=== PATIENT | female | born 1995 | race African-American/Black ===

== ENCOUNTER 2017-10-03 17:23 | Inpatient (IN) ==
[2017-10-03] MEDS ORDERED: ONDANSETRON 4 MG/2 ML VIAL IV PRN (17:43)
[2017-10-03 18:33] LABS: Basophils % 0.5 % (0.0-0.8); Eosinophils # 0.1 10*3/uL (0.0-0.87); Eosinophils % 1.2 % (0.00-10.9); Hematocrit 30.2 VOL% (35.7-47.0); Hemoglobin 10.2 GM/DL (12.0-16.0); Immature Granulocytes % 0.7 %; Immature Granulocytes Absolute 0.04 #; Lymphocytes # 2.1 10*3/uL (1.4-4.0); Lymphocytes % 34.3 % (21.3-54.2); Mean Corpuscular HGB Conc 33.8 GM/DL (32-36); Mean Corpuscular Hemoglobin 28 PG (27-34); Mean Corpuscular Volume 82.7 FL (87-102); Mean Platelet Volume 10.3 FL (9.6-12.0); Monocytes # 0.6 10*3/uL (0.11-0.8); Monocytes % 10.4 % (1.7-12.7); Neutrophils # 3.2 10*3/uL (1.4-7.4); Neutrophils % 52.9 % (38.7-73.9); Platelet Count 266 T/CUMM (130-400); Red Blood Count 3.65 MC/CUMM (3.8-5.5); Red Cell Distribution Width 13.8 % (9.3-17.3)
[2017-10-03 19:09] LABS: Alanine Aminotransferase 16 U/L (13-56); Alkaline Phosphatase 146 U/L (45-117); Aspartate Amino Transferase 15 U/L (0-37); Bilirubin,Total < 0.39 MG/DL (0.2-1.0); Blood Urea Nitrogen 7 MG/DL (7-18); Calcium 8.8 MG/DL (8.5-10.1); Glucose 102 MG/DL (74-106); Osmolality,Calculated 274.5 MOS/KG (273-304); Potassium 4.1 MMOL/L (3.5-5.1); Sodium 139 MMOL/L (136-145); Total Protein 6.9 G/DL (6.4-8.3); Uric Acid 4.3 MG/DL (2.6-6.0)
[2017-10-03] MEDS: LACTATED RINGERS 1,000 ML IV SCH (23:40)
[2017-10-04] MEDS ORDERED: BUTORPHANOL 1 MG/ML VIAL IV PRN (04:30)
[2017-10-04] MEDS ORDERED: PROMETHAZINE 25 MG/1 ML VIAL IM ONE (08:27)
[2017-10-04] MEDS ORDERED: FAMOTIDINE 20 MG/2 ML VIAL IV ONE (08:27)
[2017-10-04] MEDS ORDERED: diphenhydrAMINE 50 MG/1 ML VIAL IV PRN ×2 (08:27)
[2017-10-04] MEDS ORDERED: LACTATED RINGERS 1,000 ML IV ONE (08:27)
[2017-10-04] MEDS ORDERED: CITRIC ACID/SODIUM CITRATE 30 ML UDCUP PO ONE (08:27)
[2017-10-04] MEDS ORDERED: ePHEDrine 50 MG/ML AMP IV PRN (08:27)
[2017-10-04] MEDS ORDERED: hydrOXYzine HCL 25 MG/1 ML VIAL IM PRN (08:27)
[2017-10-04] MEDS: LACTATED RINGERS 1,000 ML IV SCH (08:29)
[2017-10-04] MEDS ORDERED: fentaNYL 2 MCG/ROPIV 0.2% EPID 150 ML EPIDURAL SCH (08:30)
[2017-10-04] MEDS ORDERED: OXYTOCIN/LR 20 UNIT/1,000 ML BAG IV ONE ×3 (10:28→18:38)
[2017-10-04] MEDS ORDERED: RHO(D) IMMUNE GLOBULIN 300 MCG SYRINGE IM ONE (11:09)
[2017-10-04] MEDS ORDERED: ACETAMINOPHEN 325 MG TABLET PO PRN (11:09)
[2017-10-04] MEDS ORDERED: IBUPROFEN 800 MG TABLET PO PRN (11:09)
[2017-10-04] MEDS ORDERED: SIMETHICONE CHEW 80 MG TABLET PO PRN (11:09)
[2017-10-04] MEDS ORDERED: ONDANSETRON 4 MG/2 ML VIAL IV PRN (11:09)
[2017-10-04] MEDS ORDERED: MAGNESIUM HYDROXIDE SUSP 30 ML UDCUP PO PRN (11:09)
[2017-10-04] MEDS ORDERED: MIDAZOLAM 2 MG/2 ML VIAL ONE (11:18)
[2017-10-04] MEDS ORDERED: MORPHINE 10 MG/10 ML VIAL ONE (11:19)
[2017-10-04] MEDS ORDERED: ceFAZolin 1,000 MG in SYRINGE 1 EACH IV SCH (11:30)
[2017-10-04] MEDS ORDERED: LACTATED RINGERS 1,000 ML IV SCH (11:30)
[2017-10-04 13:15] LABS: Apearance,Urine CLEAR (Clear); Bacteria,Urine Occasional /HPF (Few); Bilirubin,Urine Negative (Negative); Blood, Urine Negative (Negative); Glucose,Urine (UA) Negative (Negative); Ketones,Urine Negative (Negative); Mucus,Urine Occasional /LPF (Occasional); Nitrite,Urine Negative (Negative); Protein,Urine Negative; RBC,Urine 2 /HPF (0-4); Squamous Epithelial Cell,Urine Occasional /HPF (0-10); Urine Color Yellow (Yellow); Urine Specific Gravity 1.009 (1.001-1.035); Urine Urobilinogen < 2.0 EU/DL (0.2-1.0); WBC,Urine 1 /HPF (0-6)
[2017-10-04] MEDS: ceFAZolin 1,000 MG in SYRINGE 1 EACH IV SCH (17:55)
[2017-10-04 18:46] LABS: Basophils % 0.3 % (0.0-0.8); Eosinophils % 0.3 % (0.00-10.9); Hematocrit 28.2 VOL% (35.7-47.0); Hemoglobin 9.8 GM/DL (12.0-16.0); Immature Granulocytes % 0.5 %; Immature Granulocytes Absolute 0.04 #; Lymphocytes # 1.5 10*3/uL (1.4-4.0); Lymphocytes % 16.8 % (21.3-54.2); Mean Corpuscular HGB Conc 34.8 GM/DL (32-36); Mean Corpuscular Hemoglobin 28 PG (27-34); Mean Corpuscular Volume 81.5 FL (87-102); Mean Platelet Volume 10.1 FL (9.6-12.0); Monocytes # 0.9 10*3/uL (0.11-0.8); Monocytes % 9.9 % (1.7-12.7); Neutrophils # 6.4 10*3/uL (1.4-7.4); Neutrophils % 72.2 % (38.7-73.9); Platelet Count 199 T/CUMM (130-400); Red Blood Count 3.46 MC/CUMM (3.8-5.5); Red Cell Distribution Width 13.7 % (9.3-17.3); White Blood Count 8.8 T/CUMM (4-12)
[2017-10-05] MEDS: ceFAZolin 1,000 MG in SYRINGE 1 EACH IV SCH (02:40)
[2017-10-05] MEDS: DOCUSATE SODIUM 100 MG CAPSULE PO SCH ×3 (02:50→21:13)
[2017-10-05 06:31] LABS: Basophils # 0.1 10*3/uL (0.0-0.2); Basophils % 0.5 % (0.0-0.8); Eosinophils % 0.4 % (0.00-10.9); Hemoglobin 9.3 GM/DL (12.0-16.0); Immature Granulocytes % 0.6 %; Immature Granulocytes Absolute 0.06 #; Lymphocytes # 1.6 10*3/uL (1.4-4.0); Mean Corpuscular HGB Conc 34.4 GM/DL (32-36); Mean Corpuscular Hemoglobin 28 PG (27-34); Mean Corpuscular Volume 80.6 FL (87-102); Mean Platelet Volume 10.6 FL (9.6-12.0); Monocytes # 1.1 10*3/uL (0.11-0.8); Monocytes % 10.9 % (1.7-12.7); Neutrophils # 7.6 10*3/uL (1.4-7.4); Neutrophils % 72.6 % (38.7-73.9); Platelet Count 202 T/CUMM (130-400); Red Blood Count 3.35 MC/CUMM (3.8-5.5); Red Cell Distribution Width 13.7 % (9.3-17.3); White Blood Count 10.4 T/CUMM (4-12)
[2017-10-05] MEDS: oxyCODONE/ACETAMINOPHEN 5-325 MG TABLET PO PRN ×2 (06:46→16:13)
[2017-10-05] MEDS: MULTIVITAMIN (PRENATAL) TABLET PO SCH (10:02)
[2017-10-06] MEDS: oxyCODONE/ACETAMINOPHEN 5-325 MG TABLET PO PRN ×2 (02:49→19:57)
[2017-10-06] MEDS: MULTIVITAMIN (PRENATAL) TABLET PO SCH (09:27)
[2017-10-06] MEDS: KETOROLAC 10 MG TABLET PO SCH ×3 (09:27→21:45)
[2017-10-06] MEDS: DOCUSATE SODIUM 100 MG CAPSULE PO SCH ×3 (09:27→21:49)
[2017-10-07] MEDS: oxyCODONE/ACETAMINOPHEN 5-325 MG TABLET PO PRN (03:23)
[2017-10-07] MEDS: KETOROLAC 10 MG TABLET PO SCH ×2 (03:24→09:25)
[2017-10-07 08:34] VITALS: BP 90/55
[2017-10-07] MEDS: MULTIVITAMIN (PRENATAL) TABLET PO SCH (09:25)
[2017-10-07] MEDS: DOCUSATE SODIUM 100 MG CAPSULE PO SCH (09:25)
== END 2017-10-07 13:14 | disposition home or self-care (01) | DRG 766 ==
LOC: N.LDOUT 17:23 → N.LD 17:39 → N.OB 10-04 13:32
PROVIDERS: ADMIT Obstetrics & Gynecology; ATTEND Obstetrics & Gynecology
PROC: LDCSECT (ICD-10-PCS; 2017-10-04 10:20)